=== PATIENT | male | born 1945 | race Caucasian/White ===

== ENCOUNTER 2017-09-08 08:04 | Emergency (ER) | payer MEDICARE, OTHER ==
[2017-09-08 08:37] LABS: BASOPHILS 0.6 % (0-2); EOSINOPHILS 3.5 % (0-7); HEMATOCRIT 46.7 % (42.0-54.0); HEMOGLOBIN 16.7 g/dL (13.5-17.5); IMMATURE GRANULOCYTES 0.5 % (0-5); LYMPHOCYTES 29.7 % (15-50); MCH 30.8 pg (26.0-34.0); MCHC 35.8 g/dL (31.0-37.0); MEAN PLATELET VOLUME 9.5 fL (7.4-10.4); MONOCYTES 4.9 % (2-11); NEUTROPHILS 60.8 % (40-80); PLATELET COUNT 154 10x3/uL (130-400); RBC 5.43 10x6/uL (4.20-6.10); RDW 12.9 % (11.5-14.5); WBC 6.3 10x3/uL (4.8-10.8)
[2017-09-08 08:44] LABS: APTT 27.1 SECONDS (22.8-39.4); INR 1.08 (0.85-1.17); PROTIME 13.6 SECONDS (11.6-15.0)
[2017-09-08 08:50] LABS: ALBUMIN 3.9 g/dL (3.4-5.0); ALKALINE PHOSPHATASE 97 U/L (46-116); ALT (SGPT) 42 U/L (10-68); CALC OSMOLALITY 284 mosm/kg (275-300); CALCIUM 9.5 mg/dL (8.5-10.1); CARBON DIOXIDE 27.7 mmol/L (21.0-32.0); CHLORIDE - SERUM 101 mmol/L (98-107); CREATININE - SERUM 1.1 mg/dL (0.6-1.3); GLUCOSE 196 mg/dL (74-106); POTASSIUM - SERUM 3.3 mmol/L (3.5-5.1); PROTEIN - SERUM 7.1 g/dL (6.4-8.2); SODIUM 139 mmol/L (136-145); UREA NITROGEN 18 mg/dL (7-18); eGFR NON AFRICAN AMERICAN 70 mL/min (90-120)
[2017-09-08 08:53] LABS: CREATINE KINASE 67 UL (21-232); TROPONIN-I < 0.017 ng/mL (0.000-0.060)
== END 2017-09-08 10:24 | disposition home or self-care (01) ==
LOC: D.ER 08:04
PROVIDERS: Emergency Medicine
DX: H83.02 Labyrinthitis, left ear (principal); I10 Essential (primary) hypertension; E11.9 Type 2 diabetes mellitus without complications